=== PATIENT | male | born 1955 | race Caucasian/White ===

== ENCOUNTER → 2017-11-02 | Outpatient (CLI) | payer BC, SELFPAY | PROVIDERS: PCP Internal Medicine Adolescent Medicine; Visit Provider Internal Medicine Adolescent Medicine | DX: R00.2 Palpitations (principal); R42 Dizziness and giddiness | CPT/HCPCS: 78452; 93017; A9502 ==

== ENCOUNTER → 2017-11-10 07:24 | Outpatient (CLI) | payer BC, SELFPAY ==
--- NOTE | 2017-11-10 07:36 | AS_ITS ---
Renal Arterial Duplex Indications: 405.91 Unspecified renovascular hypertension. IMPRESSIONS 1. The right renal artery appears normal. 2. The left renal artery appears normal. 3. RAR is within normal limits bilaterally. No evidence of renal artery stenosis, bilaterally. History: Risk factors: Hypertension. Complete renal arterial duplex. Duplex scan and Doppler flow study including spectral analysis, color and jon scale imaging. Height: Height: 172.7cm. Height: 68in. Weight: Weight: 86.2kg. Weight: 189.6lb. Body mass index: BMI: 28.9kg/m^2. Body surface area: BSA: 2.05m^2. Patient status: Outpatient. Tables: Arterial flow: + +-------+--------+---------+ Location V sys V ed Resistive + +-------+--------+---------+ Right renal - proximal 134cm/s 48.9cm/s --------- + +-------+--------+---------+ Right renal - mid 105cm/s 41.1cm/s --------- + +-------+--------+---------+ Right renal - distal 102cm/s 39.1cm/s --------- + +-------+--------+---------+ Left renal - proximal 152cm/s 56.6cm/s --------- + +-------+--------+---------+ Left renal - mid 123cm/s 37.8cm/s --------- + +-------+--------+---------+ Left renal - distal 103cm/s 38.9cm/s --------- + +-------+--------+---------+ Right renal - Origin 166cm/s 49.6cm/s 0.70 + +-------+--------+---------+ Left renal - Origin 151cm/s 53.1cm/s 0.65 + +-------+--------+---------+ Renal anatomy: + +------+------+ Left Right + +------+------+ Long axis 11.2cm 10.9cm + +------+------+ Short axis 4.6cm 4.8cm + +------+------+ Velocity ratios: + +-----+ V sys + +-----+ Right renal/aortic 1.6 + +-----+ Left renal/aortic 1.5 + +-----+ (Report amended ) Electronically signed by: Tj Vieira [id number]
== END ==
PROVIDERS: Family Provider Internal Medicine Adolescent Medicine; PCP Internal Medicine Adolescent Medicine; Visit Provider Internal Medicine
DX: R94.39 Abnormal result of other cardiovascular function study (principal); I25.10 Atherosclerotic heart disease of native coronary artery without angina pectoris; I10 Essential (primary) hypertension
CPT/HCPCS: 93976

== ENCOUNTER 2017-11-11 07:34 | Day surgery (SDC) | payer BC, SELFPAY ==
[2017-11-11] VITALS (16 sets, daily range): BP systolic 110–163; BP diastolic 66–100; PULSE 65–96; RESP 16–20; TEMP 36.8; O2SAT 92–96; BMI 28.3
--- NOTE | 2017-11-11 | IR_ITS ---
CARDIAC CATHETERIZATION DATE OF CATHETERIZATION:11/11/2017 9:37 AM PROCEDURES: 1. Left heart catheterization 2. Left ventriculogram 3. Selective coronary angiogram INDICATION FOR TEST: 1. Abnormal Myoview 2. Angina pectoris 3. Risk factors for coronary artery disease Informed consent was obtained prior to the procedure. COMPLICATIONS: None ESTIMATED BLOOD LOSS: Less than 10 ml. TECHNIQUE: One percent lidocaine used to anesthetize the right anterior aspect of the wrist. The right radial artery was accessed via the Seldinger technique. A 6 Vietnamese sheath was placed in the right radial artery. 2.5 mg of verapamil, 800 mcg of nitroglycerin and 5000 U Heparin were given through the arterial sheath. The trap catheter was also used to perform left heart catheterization and left ventriculography. At the end of the procedure the patient was transferred to the post-op holding area in stable condition for arterial sheath removal. ANGIOGRAPHIC RESULTS: 1. The left main artery normal 2. The left anterior descending artery normal 3. The circumflex artery normal and dominant 4. The right coronary artery nondominant normal 5. The TARIQ ventriculogram reveals 65% 6. The left ventricular end-diastolic pressure 20 mmHg 7. There is a large eccentric inferior rim of calcium between the diaphragm and the myocardium which appears to be involving the pericardium. IMPRESSION: 1. Normal coronary arteries. 2. Normal ejection fraction 3. Mildly elevated LVEDP 4. Large calcific ring which appears to be involving the pericardium along the inferior border. The clinical significance of this is uncertain PLAN: 1. I would recommend a dedicated CAT scan of the chest specifically making thin cuts through the pericardium. 2. If chronic constrictive pericarditis is in the differential I would consider additional workup 3. Risk factor modifications
[2017-11-11 08:07] LABS: Basophils % 0.6 % (0.1-2.0); Eosinophils # 0.2 K/mm3 (0.0-0.4); Eosinophils % 4.2 % (0.1-12.0); Hematocrit 42.3 % (42.0-52.0); Hemoglobin 13.7 g/dL (14.1-18.0); Lymphocytes # 1.9 K/mm3 (0.7-4.5); Lymphocytes % 36.6 K/mm3 (10-50); Mean Corpuscular HGB Conc 32.5 g/dL (31.8-35.4); Mean Corpuscular Hemoglobin 30.4 pg (27.0-31.2); Mean Corpuscular Volume 93.8 fl (80-94); Mean Platelet Volume 7.3 fl (7.4-10.4); Monocytes # 0.4 K/mm3 (0.1-1.0); Monocytes % 7.9 % (1.7-9.3); Neutrophils # 2.7 K/mm3 (1.8-7.8); Neutrophils % 50.7 % (37.0-80.0); Platelet Count 222 K/mm3 (142-424); Red Blood Count 4.51 M/mm3 (4.60-6.20); Red Cell Distribution Width 13.5 % (11.5-17.5); White Blood Count 5.3 K/mm3 (4.8-10.8)
[2017-11-11 08:12] LABS: Anion Gap 9.6 mEq/L (5-15); Blood Urea Nitrogen 19 mg/dL (7-18); Carbon Dioxide 28 mmol/L (21.0-32.0); Chloride 107 mmol/L (98-107); Creatinine Clearance Estimated 93 mg/ml (0-300); Creatinine,Serum 0.95 mg/dL (0.70-1.30); Estimated Glomerular Filt Rate > 60 ml/min (>60); GFR (African American) > 60 ML/MIN (>60); Glucose 116 mg/dL (74-106); Potassium 3.6 mmoL/L (3.5-5.1); Sodium 141 mmol/L (136-145)
--- NOTE | 2017-11-24 11:03 | PC.NURSE ---
post procedure call made, pt did not answer and unable to leave message
== END 2017-11-11 13:35 | disposition home or self-care (01) ==
LOC: CATHLAB 07:35
PROVIDERS: Family Provider Internal Medicine Adolescent Medicine; PCP Internal Medicine Adolescent Medicine; Visit Provider Internal Medicine
DX: R07.9 Chest pain, unspecified (principal); R94.39 Abnormal result of other cardiovascular function study
CPT/HCPCS: 80048; 85025; 93458; 96372; 99152; C1725; C1769; J1644; Q9967

== ENCOUNTER → 2017-11-17 11:15 | Outpatient (CLI) | payer BC, SELFPAY ==
--- NOTE | 2017-11-17 12:36 | CT_ITS ---
CT chest w con HISTORY: Chest pain ITS.REASON: R/O CHRONIC CONSTRICTIVE PERICARDITIS ORDERING PHYSICIAN: Hansel Garcia MD PATIENT AGE: 62 years TECHNIQUE: Helical acquisition obtained following the bolus administration of 75 mL of Isovue 370 . Axial, sagittal, and coronal reformatted images are generated and reviewed. COMPARISON: None FINDINGS: The thoracic aorta has an unremarkable appearance. No evidence of aneurysm or dissection. No evidence of central pulmonary embolus. Normal-sized pulmonary artery. Scattered plaque-like areas of calcification are present involving the pericardium. This involves the anterior and right lateral aspect of the pericardium, the left posterior lateral aspect of the pericardium, and the inferior pericardium. The calcification inferiorly is somewhat coarse. The calcification is not continuous around the heart. No obvious pericardial effusion. Calcified granuloma is present in the right lower lobe. No suspicious pulmonary nodules evident. No lobar consolidation or collapse. No effusions. Upper abdominal images are unremarkable.. No acute bony anomalies. IMPRESSION: Scattered pericardial calcification as described above which may be seen with constrictive pericarditis. Old granulomatous disease. Otherwise negative CT chest with contrast
[2017-11-17 13:09] LABS: Blood Urea Nitrogen 14 mg/dL (7-18); Creatinine,Serum 1.04 mg/dL (0.70-1.30); Estimated Glomerular Filt Rate 73 ml/min (>60); GFR (African American) 88 ML/MIN (>60)
--- NOTE | 2017-11-17 13:40 | HMH.ITSHM ---
LOSARTAN POT 100MG ATORVASTATIN 20MG CARVEDILOL 25MG CYCOLBENZAPRINE 10MG HYDROCODON-APAP 7.5-3.25 DILTIAZEM 24 HR ER 120MG
== END ==
PROVIDERS: PCP Internal Medicine Adolescent Medicine; Visit Provider Internal Medicine
DX: R00.2 Palpitations (principal); I15.0 Renovascular hypertension
CPT/HCPCS: 36415; 71260; 82565; 84520; Q9967

== ENCOUNTER → 2017-12-05 09:17 | Outpatient (CLI) | payer BC, SELFPAY ==
--- NOTE | 2017-12-05 09:26 | CA_ITS ---
PROCEDURE: 2-D M-mode and color Doppler study INDICATIONS FOR THE TEST: Chest pain COPD Heart Murmur Tobacco Smoking PalpitationsX Fatigue Syncope Edema Hypertension Diabetes Mellitus Rheumatic Fever SOB NICHOLS Obesity Hyperlipidemia Family History HD Additional History CONSTRICTIVE PERICARDITIS PATIENT INFORMATION HEIGHT: 68 WEIGHT:189 GENDER: Male B/P:140/85 2-D/M-MODE INTERPRETATION: 2-D MEASUREMENTS OBSERVED VALUES IN CMS Right Ventricular Dimension (RVDd) 1.8 Interventricular Septum (Thickness)(IVsd) .8 Left Ventricular Internal Dimensions(LVIDd) 5.9 Left Ventricular Posterior Wall (Thickness)(LVPWd) .7 Aortic Root 3.2 Aortic Cusp Separation 2.1 Left Atrial Dimensions (LAD) 3.6 2D 1. Left atrium is mildly enlarged, left ventricle is normal size, visually estimated ejection fraction of 50% with no obvious regional wall motion abnormality. 2. The right atrium and right ventricle are relatively normal size and function 3. The aortic valve is minimally thickened and fibrosed. 4. The mitral and tricuspid valve leaflets are minimally thickened 5. The pulmonic valve is poorly visualized 6. No significant pericardial effusion noted. DOPPLER INTERROGATION: Doppler interrogation of the aortic, mitral and tricuspid valvular presence of mild mitral and tricuspid regurgitation, tricuspid and jet velocity is insufficient for calculation of the right ventricular systolic pressure, grade 1 diastolic dysfunction seen with tissue Doppler evidence of raised left atrial pressure. There is no obvious echocardiographic findings to suggest constriction. CONCLUSION: 1. Mildly enlarged left atrium, normal left ventricular size, visually is estimated ejection fraction 50% with no obvious regional wall motion abnormality. There is no obvious echocardiographic findings to suggest constrictive physiology. 2. Mild mitral and tricuspid regurgitation 3. Grade 1 diastolic dysfunction seen with tissue Doppler evidence of raised left atrial pressure. 4. No significant pericardial effusion noted.
== END ==
PROVIDERS: Family Provider Internal Medicine Adolescent Medicine; PCP Internal Medicine Adolescent Medicine; Visit Provider Internal Medicine Cardiovascular Disease
DX: R00.2 Palpitations (principal); I15.0 Renovascular hypertension
CPT/HCPCS: 93306

== ENCOUNTER → 2017-12-05 10:14 | Outpatient (CLI) | payer BC, SELFPAY ==
[2017-12-05 12:41] LABS: Anion Gap 10.4 mEq/L (5-15); Blood Urea Nitrogen 14 mg/dL (7-18); Carbon Dioxide 32 mmol/L (21.0-32.0); Chloride 104 mmol/L (98-107); Creatinine,Serum 1.07 mg/dL (0.70-1.30); Estimated Glomerular Filt Rate 70 ml/min (>60); GFR (African American) 85 ML/MIN (>60); Glucose 105 mg/dL (74-106); Potassium 4.4 mmoL/L (3.5-5.1); Sodium 142 mmol/L (136-145)
== END ==
PROVIDERS: PCP Internal Medicine Adolescent Medicine; Visit Provider Internal Medicine Cardiovascular Disease
DX: I31.1 Chronic constrictive pericarditis (principal); R00.2 Palpitations; I10 Essential (primary) hypertension
CPT/HCPCS: 36415; 80048

== ENCOUNTER → 2018-02-08 09:48 | Outpatient (CLI) | payer BC, SELFPAY ==
--- NOTE | 2018-02-08 | CI_ITS ---
Cerebrovascular Exam Indications: Transient vision loss 368.12. TIA 434.91. IMPRESSIONS 1. The bilateral vertebral arteries are patent with normal antegrade flow. 2. Study suggests less than 20% stenosis involving the right internal carotid artery and the left internal carotid artery. Carotid duplex study. Complete study and Doppler flow study including spectral analysis, color and jon scale imaging. Height: Height: 167.6cm. Height: 66in. Weight: Weight: 86.2kg. Weight: 189.6lb. Body mass index: BMI: 30.7kg/m^2. Body surface area: BSA: 2.03m^2. Location: Vascular laboratory. Patient status: Outpatient. Tables: Arterial flow: + +--------+--------+ Location V sys V ed + +--------+--------+ Right CCA - proximal 105cm/s 1.6cm/s + +--------+--------+ Right CCA - distal 99.8cm/s 34.6cm/s + +--------+--------+ Right ECA 104cm/s -------- + +--------+--------+ Right ICA - proximal 85.5cm/s 32.1cm/s + +--------+--------+ Right ICA - mid 74.2cm/s 35.2cm/s + +--------+--------+ Right ICA - distal 90.5cm/s 33.9cm/s + +--------+--------+ Right vertebral 48.5cm/s -------- + +--------+--------+ Left CCA - proximal 114cm/s 42.6cm/s + +--------+--------+ Left CCA - distal 94.3cm/s 36.3cm/s + +--------+--------+ Left ECA 120cm/s -------- + +--------+--------+ Left ICA - proximal 83.8cm/s 33.5cm/s + +--------+--------+ Left ICA - mid 90.1cm/s 41.9cm/s + +--------+--------+ Left ICA - distal 91.5cm/s 48.2cm/s + +--------+--------+ Left vertebral 48.9cm/s -------- + +--------+--------+ Velocity ratios: + + + + + + Right, V sys Right, V ed Left, V sys Left, V ed + + + + + + Max ICA/dist CCA 0.91 1.02 0.97 1.33 + + + + + + (Report amended ) Electronically signed by: Ricco Antonio [id number]
== END ==
PROVIDERS: Family Provider Internal Medicine Adolescent Medicine; PCP Internal Medicine Adolescent Medicine; Visit Provider Nurse Practitioner Family
DX: G45.8 Other transient cerebral ischemic attacks and related syndromes (principal); H35.62 Retinal hemorrhage, left eye
CPT/HCPCS: 93880

== ENCOUNTER → 2021-08-26 16:33 | Outpatient (CLI) | payer BC, SELFPAY ==
[2021-08-26 16:54] LABS: Alanine Aminotransferase 25 U/L (12-78); Albumin Level 3.9 g/dl (3.5-5.0); Albumin/Globulin Ratio 1.3 (1.1-1.8); Alkaline Phosphatase 117 U/L (38-126); Anion Gap 11.2 mEq/L (5-15); Aspartate Amino Transferase 30 U/L (17-59); Bilirubin,Total 0.5 mg/dl (0.2-1.3); Blood Urea Nitrogen 18 mg/dl (9-20); Calcium 9.5 mg/dl (8.4-10.2); Carbon Dioxide 32 mmol/L (22.0-30.0); Chloride 103 mmol/L (98-107); Chol/HDL Ratio 6.5 (1-3.5); Cholesterol 235 mg/dl (140-200); Estimated Glomerular Filt Rate 75 ml/min (>60); GFR (African American) 91 ML/MIN (>60); Glucose 116 mg/dl (74-100); HDL Cholesterol 36 mg/dl (40-60); Potassium 4.2 mmoL/L (3.5-5.1); Sodium 142 mmol/L (136-145); Total Protein,Serum 6.9 g/dl (6.3-8.2); Triglycerides 210 mg/dl (30-150); VLDL Cholesterol 42 mg/dL (0-40)
[2021-08-26 16:56] LABS: Basophils # 0.1 K/mm3 (0-0.2); Basophils % 0.9 % (0.1-2.0); Eosinophils # 0.3 K/mm3 (0.0-0.4); Eosinophils % 3.3 % (0.1-12.0); Hematocrit 49.6 % (42.0-52.0); Hemoglobin 15.8 g/dL (14.1-18.0); Lymphocytes # 2.5 K/mm3 (0.7-4.5); Lymphocytes % 29.9 % (10-50); Mean Corpuscular HGB Conc 31.9 g/dL (31.8-35.4); Mean Corpuscular Hemoglobin 30.5 pg (27.0-31.2); Mean Corpuscular Volume 95.5 fl (80-94); Mean Platelet Volume 8.5 fl (7.4-10.4); Monocytes # 0.4 K/mm3 (0.1-1.0); Neutrophils # 5.1 K/mm3 (1.8-7.8); Neutrophils % 60.9 % (37.0-80.0); Platelet Count 348 K/mm3 (142-424); Red Blood Count 5.19 M/mm3 (4.60-6.20); Red Cell Distribution Width 12.6 % (11.5-17.5); White Blood Count 8.4 K/mm3 (4.8-10.8)
[2021-08-26 17:05] LABS: Direct LDL Cholesterol 141.49 mg/dL (100-129)
[2021-08-26 17:24] LABS: Prostate Specific Ag Screen 1.7 ng/ml (0.0-4.0)
== END ==
PROVIDERS: Visit Provider Nurse Practitioner Family
DX: I10 Essential (primary) hypertension (principal); E78.2 Mixed hyperlipidemia; J01.00 Acute maxillary sinusitis, unspecified; Z80.42 Family history of malignant neoplasm of prostate; Z12.5 Encounter for screening for malignant neoplasm of prostate
CPT/HCPCS: 80053; 80061; 85025; G0103